=== PATIENT | female | born 1975 | race Two or more races ===

== ENCOUNTER 2018-06-02 10:20 | Emergency (ER) | payer SELFPAY ==
[~2018-06-02] VITALS: Ht 160 cm; Wt 80.4 kg
[2018-06-02 11:45] LABS: BASOPHILS # (AUTO) 0.05 x10^3/uL (0-0.1); BASOPHILS % (AUTO) 1 % (0-1); EOSINOPHILS % (AUTO) 4 % (1-7); LYMPHOCYTES # (AUTO) 1.18 x10^3/uL (1-3.4); LYMPHOCYTES % (AUTO) 16 % (22-44); MD NO; MEAN CORPUSCULAR HEMOGLOBIN 31.3 pg (27.0-34.8); MEAN CORPUSCULAR HGB CONC 33.4 g/dL (32.4-35.8); MEAN CORPUSCULAR VOLUME 93.6 fL (80-100); MEAN PLATELET VOLUME 8.6 fL (7.4-10.4); MONOCYTES # (AUTO) 0.39 x10^3/uL (0.2-0.8); MONOCYTES % (AUTO) 5 % (2-9); NEUTROPHILS # (AUTO) 5.42 x10^3/uL (1.8-6.8); NEUTROPHILS % (AUTO) 74 % (42-75); PLATELET COUNT 230 x10^3/uL (130-400); RED BLOOD COUNT 4.52 x10^6/uL (3.82-5.3); RED CELL DISTRIBUTION WIDTH 13.5 % (9.6-15.2)
[2018-06-02 11:48] LABS: MICROSCOPIC INDICATED
[2018-06-02 11:55] LABS: ALBUMIN 3.6 g/dL (3.4-5.0); ANION GAP 7 mmol/L (5-15); CALCIUM 8.7 mg/dL (8.5-10.1); CHLORIDE 108 mmol/L (98-107)
[2018-06-02 12:13] LABS: CREATININE 0.79 mg/dL (0.55-1.02)
[2018-06-02] MEDS ORDERED: ASPI-496 PO (12:14)
[2018-06-02 13:45] VITALS: BP 104/56
== END 2018-06-02 13:47 | disposition home or self-care (01) ==
LOC: ED 13:41
DX: M54.5 Low back pain (principal); R10.30 Lower abdominal pain, unspecified
CPT/HCPCS: 36415; 76830; 80048; 81001; 82040; 84702; 84703; 85025; 99284

== ENCOUNTER 2018-06-05 09:08 | Emergency (ER) | payer SELFPAY ==
[~2018-06-05] VITALS: Ht 157.5 cm; Wt 81.7 kg
[~2018-06-05 09:08] MED LIST: ASPI-496 PO
[2018-06-05 09:23] VITALS: BP 144/70
== END 2018-06-05 10:20 | disposition left against medical advice (07) ==
LOC: ED 10:14
DX: Z32.00 Encounter for pregnancy test, result unknown (principal); Z53.21 Procedure and treatment not carried out due to patient leaving prior to being seen by health care provider

== ENCOUNTER → 2018-06-17 | Outpatient (CLI) | payer OTHER | END | disposition home or self-care (01) | LOC: CVU 06:55 | PROVIDERS: ATTEND Internal Medicine Cardiovascular Disease | DX: R07.9 Chest pain, unspecified (principal); R06.02 Shortness of breath; R60.9 Edema, unspecified | CPT/HCPCS: 93306; 93970 ==